=== PATIENT | male | born 1980 | race Caucasian/White ===

== ENCOUNTER 2021-08-25 10:24 | Emergency (ER) | payer OTHER ==
--- NOTE | 2021-08-25 10:50 | EDM.PDOC ---
ED HPI GENERAL MEDICAL PROBLEM - General Stated Complaint: HAND INJURY Time Seen by Provider: 08/25/21 10:30 Source of Information: Reports: Patient History Limitations: Reports: No Limitations - History of Present Illness INITIAL COMMENTS - FREE TEXT/NARRATIVE: c/o injury to fingers of R hand R handed moved to [place] 2m ago, worked at [employer] x 2m handing a tool across a moving belt at work, fingers got caught in bed, he says his "fingers just touched the belt" last Td unknown Right Hand Pain Score (Numeric/FACES): 8 - Related Data Allergies Allergy/AdvReac Type Severity Reaction Status Date / Time No Known Allergies Allergy Verified 08/25/21 11:40 Home Meds: Home Meds Hydrocodone/Acetaminophen [HYDROcodone-Acetaminophen 7.5-325 MG] 1 each PO Q6H PRN #12 tablet 08/25/21 [Rx] Ibuprofen 200 mg PO ASDIRECTED PRN 08/25/21 [History] Multivitamin 1 tab PO DAILY 08/25/21 [History] Review of Systems - Review of Systems Review Of Systems: See Below Constitutional: Reports: No Symptoms Eyes: Reports: No Symptoms Ears: Reports: No Symptoms Nose: Reports: No Symptoms Mouth/Throat: Reports: No Symptoms Respiratory: Reports: No Symptoms Cardiovascular: Reports: No Symptoms GI/Abdominal: Reports: No Symptoms Genitourinary: Reports: No Symptoms Musculoskeletal: Reports: Hand Pain Skin: Reports: No Symptoms Neurological: Reports: No Symptoms Psychiatric: Reports: No Symptoms ED EXAM, GENERAL - Physical Exam Exam: See Below Exam Limited By: No Limitations General Appearance: Alert, WD/WN Extremities: Other (right middle finger with avulsion of distal 1/3rd with 3/4th of nail missing, no lac. Right index finger with avulsion of distal 1/4th with 1/2 of nail missing. Also curvilinear 1.5 cm lac dorsally) Course - Vital Signs Last Recorded V/S: Last Vital Signs Temp 36.3 C 08/25/21 10:24 Pulse 86 08/25/21 13:57 Resp 16 08/25/21 13:57 BP 136/85 08/25/21 13:57 Pulse Ox 96 08/25/21 13:57 - Orders/Labs/Meds Orders: Active Orders 24 hr Category Date Time Status Vaccine to be Administered/Admin Charge [RC] ASDIRECTED Care 08/25/21 10:43 Active Labs: Laboratory Tests 08/25/21 Range/Units 12:15 SARS-CoV-2 RNA (TAJ) Negative (NEGATIVE) Meds: Medications Discontinued Medications Generic Name Dose Route Start Last Admin Trade Name Cece PRN Reason Stop Dose Admin Cefazolin Sodium 1 gm 08/25/21 13:20 08/25/21 13:48 Cefazolin 1 Gm Vial IM 08/25/21 13:21 1 gm ONETIME ONE Administration Diphtheria/Tetanus/Acell Pertussis 0.5 ml 08/25/21 10:43 08/25/21 11:00 Diphtheria,Pertussis(Acell),Tetanus Vaccine 0.5 Ml Syringe IM 08/25/21 10:44 0.5 ml .ONCE ONE Administration Hydromorphone HCl 1 mg 08/25/21 10:42 08/25/21 10:59 Hydromorphone 2 Mg/Ml Sdv IM 08/25/21 10:43 1 mg ONETIME ONE Administration Ketorolac Tromethamine 60 mg 08/25/21 10:42 08/25/21 11:00 Ketorolac 30 Mg/Ml Sdv IM 08/25/21 10:43 60 mg ONETIME ONE Administration - Re-Assessments/Exams Free Text/Narrative Re-Assessment/Exam: 08/25/21 14:25 d/w Dr Davis who said he has not done finger flaps and recommended hand surgery [facility] reached at 11:48aSoni answered phone and reached [facility] hand, d/w Dr Pineda through the [facility] ([place] [facility] did not answer) who requested to see pt tomorrow (Sat) for definitive repair of distal R middle finger where there is no fat covering bone prelim ED read of XRs show no fx, fat layer over R index finger there is a 1 cm defect at distal R index finger and 2 cm defect (at maximum dimension) over R middle finger there is a "three-sided" lac involving the lower 1/3rd of the nail at the index finger that was closed with 3-0 Prolene interrupted x 7, one suture was through the nail altho underlying nail appeared intact Ancef 1 gm IM given as per request of Dr Pineda, who said that he would given additional antbxs digit block of R index finger after betadaine x 6 and alc prep x 3 with #30 needle and 2% lido without epi, cleaned x 10 with gauze and NS wound (over dorsum of index finger) was clean and scrubbed with gauze and NS, no fb's, pedicle of 8 mm on medical aspect appeared adequate to maintain blood supply altho pt cautioned that viability of flap could not be determined definitively today pt's cell phone is [phone] Departure - Departure Time of Disposition: 13:16 Disposition: Home, Self-Care 01 Condition: Good Clinical Impression: Traumatic amputation of fingertip, Laceration of right index finger Fingertip avulsion Qualifiers: Encounter type: initial encounter Qualified Code(s): S61.209A - Unspecified open wound of unspecified finger without damage to nail, initial encounter - Discharge Information *PRESCRIPTION DRUG MONITORING PROGRAM REVIEWED*: Not Applicable *COPY OF PRESCRIPTION DRUG MONITORING REPORT IN PATIENT JOSE: Not Applicable Prescriptions: Hydrocodone/Acetaminophen [HYDROcodone-Acetaminophen 7.5-325 MG] 1 each PO Q6H PRN #12 tablet PRN Reason: Pain Instructions: Traumatic Finger Amputation, Laceration Care, Adult Referrals: PCP,None [Primary Care Provider] - Additional Instructions: Nothing to eat or drink after midnight. Dr Pineda's nurse will call you with the details for tomorrow. He is anticipating having you come at 8:[address] [place] [address] in [facility], although be sure to confirm that with the nurse first. Call back to the ED if you do not have hear from his nurse. For pain, take hydrocodone with acetaminophen 7.5/325 mg 1 tab every 6 hours as needed. No alcohol. For pain, put ice in a plastic bag (to keep dressing dry) and use for 10 minutes every 1-2 hours as needed. Sepsis Event Note (ED) - Focused Exam Vital Signs: Vital Signs Temp Pulse Resp BP Pulse Ox 08/25/21 13:57 86 16 136/85 96 08/25/21 10:24 36.3 C 89 20 150/102 H 99 - My Orders Last 24 Hours: My Active Orders 08/25/21 10:43 Vaccine to be Administered/Admin Charge [RC] ASDIRECTED - Assessment/Plan Last 24 Hours: My Active Orders 08/25/21 10:43 Vaccine to be Administered/Admin Charge [RC] ASDIRECTED
[2021-08-25] MEDS: HYDROmorphone 2 MG/ML SDV IM ONE (10:59)
[2021-08-25] MEDS: Diphtheria,Pertussis(Acell),Tetanus Vaccine 0.5 ML Syringe IM ONE (11:00)
[2021-08-25] MEDS: Ketorolac 30 MG/ML SDV IM ONE (11:00)
--- NOTE | 2021-08-25 12:43 | CR ---
INDICATION: Avulsion second and third digits. RIGHT FINGERS: Three views of the second and third fingers revealed avulsion of the soft tissue at the tips of the fingers without a definite fracture or dislocation, or other acute bone or joint abnormality identified. MTDD
[2021-08-25] MEDS: ceFAZolin 1 GM Vial IM ONE (13:48)
== END 2021-08-25 13:57 | disposition home or self-care (01) ==
LOC: FB.ED 10:24
DX: S68.110A Complete traumatic metacarpophalangeal amputation of right index finger, initial encounter (principal); Z23 Encounter for immunization; Z20.822 Contact with and (suspected) exposure to COVID-19; W23.0XXA Caught, crushed, jammed, or pinched between moving objects, initial encounter; Y92.89 Other specified places as the place of occurrence of the external cause; Y99.0 Civilian activity done for income or pay
CPT/HCPCS: 11760; 73140; 87635; 90471; 90715; 96372; 99283; J0690; J1170; J1885; U0002

== ENCOUNTER 2021-09-29 11:34 | Emergency (ER) | payer SELFPAY ==
[2021-09-29] MEDS ORDERED: Morphine 4 MG/ML VIAL IVPUSH STA (11:56)
[2021-09-29] MEDS ORDERED: Ondansetron 4 MG/2 ML SDV IVPUSH STA (11:56)
[2021-09-29] MEDS ORDERED: Sodium Chloride 0.9% 10 ML Syringe FLUSH PRN (11:56)
[2021-09-29] MEDS ORDERED: Sodium Chloride 0.9% 1,000 ML IV SCH (12:00)
[2021-09-29] MEDS ORDERED: Iopamidol 755 Mg/ML 100 ML Bottle IV ONE (12:07)
[2021-09-29] MEDS ORDERED: Ketorolac 30 MG/ML SDV IVPUSH STA (12:24)
[2021-09-29] MEDS ORDERED: HYDROmorphone 2 MG/ML SDV IVPUSH STA (12:27)
--- NOTE | 2021-09-29 12:49 | EDM.PDOC ---
ED HPI GENERAL MEDICAL PROBLEM - General Stated Complaint: RT SIDE PAIN Time Seen by Provider: 09/29/21 11:40 Source of Information: Reports: Patient History Limitations: Reports: No Limitations - History of Present Illness INITIAL COMMENTS - FREE TEXT/NARRATIVE: Patient presented to the ED because RLQ and RT flank pain which started at about 10 a.m. The pain is stabbing,10/10 with associated nausea and vomiting x1. There is no fever, chills, cough or cold. There is no urinary symptoms or changes in bowel movements. Right Abdomen Pain Score (Numeric/FACES): 10 - Related Data Allergies Allergy/AdvReac Type Severity Reaction Status Date / Time No Known Allergies Allergy Verified 08/25/21 11:40 Home Meds: Home Meds Hydrocodone/Acetaminophen [HYDROcodone-Acetaminophen 7.5-325 MG] 1 each PO Q6H PRN #12 tablet 08/25/21 [Rx] Ibuprofen 200 mg PO ASDIRECTED PRN 08/25/21 [History] Multivitamin 1 tab PO DAILY 08/25/21 [History] Acetaminophen/oxyCODONE [Percocet 325-5 MG] 1 each PO Q4H #20 tab 09/29/21 [Rx] Ondansetron [Zofran ODT] 4 mg PO Q4H PRN #7 tab.dis 09/29/21 [Rx] Tamsulosin HCl [Flomax] 0.4 mg PO DAILY #10 cap.er.24h 09/29/21 [Rx] Social & Family History - Family History Family Medical History: No Pertinent Family History - Caffeine Use Caffeine Use: Reports: Coffee ED ROS GENERAL - Review of Systems Review Of Systems: See Below Constitutional: Reports: No Symptoms HEENT: Reports: No Symptoms Respiratory: Reports: No Symptoms Cardiovascular: Reports: No Symptoms Endocrine: Reports: No Symptoms GI/Abdominal: Reports: Abdominal Pain, Nausea, Vomiting : Reports: No Symptoms Musculoskeletal: Reports: No Symptoms Skin: Reports: No Symptoms ED EXAM, GI/ABD - Physical Exam Exam: See Below Exam Limited By: No Limitations General Appearance: Alert, No Apparent Distress Ears: Normal External Exam, Normal Canal, Hearing Grossly Normal Nose: Normal Inspection, Normal Mucosa, No Blood Throat/Mouth: Normal Inspection, Normal Lips, Normal Teeth Head: Atraumatic, Normocephalic Neck: Normal Inspection, Supple, Non-Tender, Full Range of Motion Respiratory/Chest: No Respiratory Distress, Lungs Clear, Normal Breath Sounds, No Accessory Muscle Use, Chest Non-Tender Cardiovascular: Normal Peripheral Pulses, Regular Rate, Rhythm, No Edema, No Gallop, No JVD, No Murmur GI/Abdominal Exam: Normal Bowel Sounds, Soft, No Organomegaly, No Distention, No Abnormal Bruit, Other (RCVAT) Back Exam: Normal Inspection, Full Range of Motion Extremities: Normal Inspection, Normal Range of Motion, Non-Tender, No Pedal Edema, Normal Capillary Refill Neurological: Alert, Oriented, CN II-XII Intact, Normal Cognition Course - Vital Signs Text/Narrative:: Lab/CT abd-pelvis result was reviewed and discussed with patient NS 1 L bolus Morphine 4 mg IV x1 Dilaudid 1 mg IV x1 Toradol 30 mg IV x1 Zofran 4 mg IV x1 Last Recorded V/S: Last Vital Signs Temp 35.9 C L 09/29/21 11:36 Pulse 77 09/29/21 11:36 Resp 16 09/29/21 11:36 BP 143/108 H 09/29/21 11:36 Pulse Ox 100 09/29/21 11:36 - Orders/Labs/Meds Orders: Active Orders 24 hr Category Date Time Status Saline Lock Insert [OM.PC] Routine Oth 09/29/21 11:56 Ordered Labs: Laboratory Tests 09/29/21 09/29/21 09/29/21 Range/Units 11:52 12:04 12:04 WBC 8.7 (3.2-10.1) x10-3/uL RBC 5.18 (3.90-5.90) x10(6)uL Hgb 14.9 (12.9-17.7) g/dL Hct 43.5 (38.3-50.1) % MCV 84.1 (80.8-98.7) fL MCH 28.8 (27.0-33.3) pg MCHC 34.3 (28.7-35.3) g/dL RDW 14.9 (12.4-15.0) % Plt Count 210 (117-477) x10(3)uL MPV 7.1 (6.7-11.0) fL Neut % (Auto) 67.2 (40.3-71.8) % Lymph % (Auto) 22.9 (15.8-45.3) % Republic % (Auto) 7.2 (5.5-15.2) % Eos % (Auto) 2.2 (0.1-6.8) % Baso % (Auto) 0.5 (0.3-3.8) % Neut # (Auto) 5.8 (1.7-6.9) x10-3/uL Lymph # (Auto) 2.0 (0.5-4.5) x10-3/uL Republic # (Auto) 0.6 (0.0-1.2) x10-3/uL Eos # (Auto) 0.2 (0.0-0.6) x10-3/uL Baso # (Auto) 0.0 (0.0-0.3) x10-3/uL Sodium 137 (135-145) mmol/L Potassium 3.9 (3.5-5.3) mmol/L Chloride 101 (100-110) mmol/L Carbon Dioxide 25 (21-32) mmol/L BUN 13 (7-18) mg/dL Creatinine 1.2 (0.70-1.30) mg/dL Est Cr Clr Drug Dosing TNP Estimated GFR (MDRD) > 60 (>60) BUN/Creatinine Ratio 10.8 (9-20) Glucose 130 H (80-116) mg/dL Calcium 9.0 (8.6-10.2) mg/dL Total Bilirubin 0.8 (0.1-1.3) mg/dL AST 23 (5-25) IU/L ALT 39 H (12-36) U/L Alkaline Phosphatase 127 H (56-112) IU/L Total Protein 7.8 (6.0-8.0) g/dL Albumin 3.9 (3.5-5.2) g/dL Globulin 3.9 g/dL Albumin/Globulin Ratio 1.0 Amylase 53 (25-115) U/L Lipase (73-393) U/L Urine Color Yellow (YELLOW) Urine Appearance Slightly cloudy (CLEAR) Urine pH 5.0 (5.0-6.5) Ur Specific [place] 1.025 (1.010-1.025) Urine Protein Negative (NEGATIVE) mg/dL Urine Glucose (UA) Normal (NORMAL) mg/dL Urine Ketones Negative (NEGATIVE) mg/dL Urine Occult Blood Large H (NEGATIVE) Urine Nitrite Negative (NEGATIVE) Urine Bilirubin Negative (NEGATIVE) Urine Urobilinogen Normal (NEGATIVE) mg/dL Ur Leukocyte Esterase Negative (NEGATIVE) Urine RBC 5-10 H (0-5) Urine WBC 0-5 (0-5) Ur Squamous Epith Cells Occasional (NS,R,O) Urine Bacteria Rare H (NS) 09/29/21 Range/Units 12:04 WBC (3.2-10.1) x10-3/uL RBC (3.90-5.90) x10(6)uL Hgb (12.9-17.7) g/dL Hct (38.3-50.1) % MCV (80.8-98.7) fL MCH (27.0-33.3) pg MCHC (28.7-35.3) g/dL RDW (12.4-15.0) % Plt Count (117-477) x10(3)uL MPV (6.7-11.0) fL Neut % (Auto) (40.3-71.8) % Lymph % (Auto) (15.8-45.3) % Republic % (Auto) (5.5-15.2) % Eos % (Auto) (0.1-6.8) % Baso % (Auto) (0.3-3.8) % Neut # (Auto) (1.7-6.9) x10-3/uL Lymph # (Auto) (0.5-4.5) x10-3/uL Republic # (Auto) (0.0-1.2) x10-3/uL Eos # (Auto) (0.0-0.6) x10-3/uL Baso # (Auto) (0.0-0.3) x10-3/uL Sodium (135-145) mmol/L Potassium (3.5-5.3) mmol/L Chloride (100-110) mmol/L Carbon Dioxide (21-32) mmol/L BUN (7-18) mg/dL Creatinine (0.70-1.30) mg/dL Est Cr Clr Drug Dosing Estimated GFR (MDRD) (>60) BUN/Creatinine Ratio (9-20) Glucose (80-116) mg/dL Calcium (8.6-10.2) mg/dL Total Bilirubin (0.1-1.3) mg/dL AST (5-25) IU/L ALT (12-36) U/L Alkaline Phosphatase (56-112) IU/L Total Protein (6.0-8.0) g/dL Albumin (3.5-5.2) g/dL Globulin g/dL Albumin/Globulin Ratio Amylase (25-115) U/L Lipase 116 (73-393) U/L Urine Color (YELLOW) Urine Appearance (CLEAR) Urine pH (5.0-6.5) Ur Specific [place] (1.010-1.025) Urine Protein (NEGATIVE) mg/dL Urine Glucose (UA) (NORMAL) mg/dL Urine Ketones (NEGATIVE) mg/dL Urine Occult Blood (NEGATIVE) Urine Nitrite (NEGATIVE) Urine Bilirubin (NEGATIVE) Urine Urobilinogen (NEGATIVE) mg/dL Ur Leukocyte Esterase (NEGATIVE) Urine RBC (0-5) Urine WBC (0-5) Ur Squamous Epith Cells (NS,R,O) Urine Bacteria (NS) Meds: Medications Discontinued Medications Generic Name Dose Route Start Last Admin Trade Name Freq PRN Reason Stop Dose Admin Hydromorphone HCl 1 mg 09/29/21 12:27 09/29/21 12:31 Hydromorphone 2 Mg/Ml Sdv IVPUSH 09/29/21 12:28 1 mg NOW STA Administration Sodium Chloride 1,000 mls @ 999 mls/hr 09/29/21 12:00 09/29/21 12:03 Normal Saline IV 999 mls/hr ASDIRECTED ROYCE Administration Iopamidol 100 ml 09/29/21 12:07 09/29/21 12:24 Iopamidol 755 Mg/Ml 100 Ml Bottle IV 09/29/21 12:08 100 ml . DIRECTED ONE Administration Ketorolac Tromethamine 30 mg 09/29/21 12:24 09/29/21 12:28 Ketorolac 30 Mg/Ml Sdv IVPUSH 09/29/21 12:25 30 mg NOW STA Administration Morphine Sulfate 4 mg 09/29/21 11:56 09/29/21 12:03 Morphine 4 Mg/Ml Vial IVPUSH 09/29/21 11:57 4 mg NOW STA Administration Ondansetron HCl 4 mg 09/29/21 11:56 09/29/21 12:03 Ondansetron 4 Mg/2 Ml Sdv IVPUSH 09/29/21 11:57 4 mg NOW STA Administration Sodium Chloride 10 ml 09/29/21 11:56 09/29/21 12:37 Sodium Chloride 0.9% 10 Ml Syringe FLUSH 10 ml ASDIRECTED PRN Administration Keep Vein Open Departure - Departure Time of Disposition: 13:30 Disposition: Home, Self-Care 01 Condition: Good Clinical Impression: Nephrolithiasis - Discharge Information Prescriptions: Tamsulosin HCl [Flomax] 0.4 mg PO DAILY #10 cap.er.24h Acetaminophen/oxyCODONE [Percocet 325-5 MG] 1 each PO Q4H #20 tab Ondansetron [Zofran ODT] 4 mg PO Q4H PRN #7 tab.dis PRN Reason: Nausea Instructions: Kidney Stones, [id number] Referrals: PCP,None [Primary Care Provider] - Forms: ED Return to Work/School Form Additional Instructions: Please read discharge instructions on kidney stones Drink 2 liters of water daily Percocet/oxycodone, take 1-2 tablets every 4-6 hours as needed for pain Zofran/Odansetron ODT 4 mg every 4 hours as needed for nausea Flomax/Tamsulosin 1 tablet daily for 10 days Follow up with your doctor next week if your pain persist Sepsis Event Note (ED) - Focused Exam Vital Signs: Vital Signs Temp Pulse Resp BP Pulse Ox 09/29/21 11:36 35.9 C L 77 16 143/108 H 100 - My Orders Last 24 Hours: My Active Orders 09/29/21 11:56 Saline Lock Insert [OM.PC] Routine - Assessment/Plan Last 24 Hours: My Active Orders 09/29/21 11:56 Saline Lock Insert [OM.PC] Routine
--- NOTE | 2021-09-29 13:02 | CT ---
INDICATION: Right side abdominal pain. CT ABDOMEN AND PELVIS WITH IV CONTRAST: Spiral 3.75 mm axial sections were obtained through the abdomen and pelvis with a 3-minute delay after contrast enhancement utilizing 100 mL Isovue-370 at 2 mL/second due to patient's nausea. Examination was obtained 09/29/21 - no comparisons. TOTAL EXAM DLP: 1606.64 mGy/cm. The lower lung riggs and pleural spaces visualized were unremarkable. The heart did not appear enlarged. No pericardial effusion was seen. There is normal excretion on the left at the left kidney, which appears normal. Pyelocalyceal system and left ureter were unremarkable and noted to be emptying into the urinary bladder, which was unremarkable and almost empty. On the right, however, the kidney showed evidence of delayed excretion with mild dilatation of the pyelocalyceal system and ureter down to the level of a 3.5 mm calculus, perhaps 1 to 2 cm above the ureterovesical junction on the right. The 3.5 mm calculus appears to be producing fairly high-degree of obstruction. The appendix appeared normal, visualized on axial images 55 through 70. No evidence of free air or bowel obstruction was identified. No ventral or inguinal hernia was seen. No additional organomegaly, mass lesions or free fluid collections were identified in the abdomen or pelvis with the gallbladder absent, compatible with cholecystectomy and normal-appearing liver, spleen, pancreas, common bile duct (allowing for postcholecystectomy status), and adrenal glands. No retroperitoneal mass was seen with very minimal retroperitoneal lymphadenopathy, which is nonspecific. Bony structures showed evidence of some degenerative change and disc disease in the lumbar spine. Slight narrowing of the L3-4 disc space is noted. IMPRESSION: 1. Obstructive uropathy, moderately severe, due to a 3.5 mm calculus, approximately 1 cm from the ureterovesical junction on the right. No other definite calculi were seen - no definite nephrocalcinosis identified. However, this was a contrast-enhanced study, which makes it difficult to exclude calculi to some extent. 2. Post cholecystectomy. 3. Mild to moderate hypertrophic degenerative changes with disc disease L3-4. Report was called to Dr. Feliciano at 1230 hours, 09/29/21. [facility]
== END 2021-09-29 13:50 | disposition home or self-care (01) ==
LOC: FB.ED 11:34
DX: N20.0 Calculus of kidney (principal); Z79.899 Other long term (current) drug therapy
CPT/HCPCS: 36415; 74177; 80053; 81001; 82150; 83690; 85025; 96374; 96375; 99284; J1170; J1885; J2270; J2405; J7030; Q9967

== ENCOUNTER 2023-02-26 12:23 | Emergency (ER) | payer SELFPAY ==
[2023-02-26] MEDS ORDERED: Ketorolac 30 MG/ML SDV IM STA ×2 (12:52→12:53)
[2023-02-26] MEDS ORDERED: Enoxaparin 100 MG/1 ML Syringe SUBCUT ONE (15:58)
[2023-02-26] MEDS ORDERED: Enoxaparin 80 MG/0.8 ML Syringe SUBCUT ONE (15:59)
[2023-02-26 16:37] LABS: INR 0.92 (1.00-1.24); PROTHROMBIN TIME 9.5 sec (9.0-11.1); PTT,PARTIAL THROMBOPLSTIN TIME 25.1 SECONDS (24.4-33.2)
== END 2023-02-26 16:45 | disposition home or self-care (01) ==
LOC: FB.ED 12:23
DX: M25.562 Pain in left knee (principal); M10.9 Gout, unspecified; R79.1 Abnormal coagulation profile; Z79.899 Other long term (current) drug therapy; X50.0XXA Overexertion from strenuous movement or load, initial encounter; Y92.59 Other trade areas as the place of occurrence of the external cause
CPT/HCPCS: 36415; 84550; 85049; 85379; 85610; 85730; 96372; 99283; J1650; J1885

== ENCOUNTER 2024-04-15 07:25 | Emergency (ER) | payer SELFPAY ==
[2024-04-15] MEDS: Aspirin 81 MG Tab.Chew PO ONE (07:30)
[2024-04-15] MEDS ORDERED: Sodium Chloride 0.9% 10 ML Syringe FLUSH PRN (07:48)
[2024-04-15 07:57] LABS: BASOPHILS ABSOLUTE AUTO 0.1 x10-3/uL (0.0-0.3); BASOPHILS PERCENT AUTO 0.6 % (0.3-3.8); EOSINOPHILS PERCENT AUTO 0.3 % (0.1-6.8); HEMATOCRIT 48.6 % (38.3-50.1); HEMOGLOBIN 16.8 g/dL (12.9-17.7); LYMPHOCYTES ABSOLUTE AUTO 3.1 x10-3/uL (0.5-4.5); LYMPHOCYTES PERCENT AUTO 28.3 % (15.8-45.3); MEAN CORPUSCULAR HEMOGLOBIN 29.7 pg (27.0-33.3); MEAN CORPUSCULAR HGB CONC 34.5 g/dL (28.7-35.3); MEAN CORPUSCULAR VOLUME 86.3 fL (80.8-98.7); MEAN PLATELET VOLUME 7.8 fL (6.7-11.0); MONOCYTES PERCENT AUTO 9.1 % (5.5-15.2); NEUTROPHILS ABSOLUTE AUTO 6.7 x10-3/uL (1.7-6.9); NEUTROPHILS PERCENT AUTO 61.7 % (40.3-71.8); PLATELET COUNT,PLT 234 x10(3)uL (117-477); RED BLOOD CELL COUNT 5.64 x10(6)uL (3.90-5.90); RED CELL DISTRIBUTION WIDTH 13.5 % (12.4-15.0); WHITE BLOOD CELL COUNT,WBC 10.8 x10-3/uL (3.2-10.1)
[2024-04-15] MEDS: LORazepam 2 MG/ML SDV IVPUSH ONE (07:59)
[2024-04-15] MEDS: Nitroglycerin 0.4 MG Tab.SL SL PRN (08:01)
[2024-04-15 08:02] LABS: BLOOD UREA NITROGEN,BUN 21 mg/dL (7-18); BUN/CREATININE RATIO 17.5 (9-20); CALCIUM 9.6 mg/dL (8.6-10.2); CARBON DIOXIDE,CO2 24 mmol/L (21-32); CHLORIDE,CL 94 mmol/L (100-110); CREATININE 1.2 mg/dL (0.70-1.30); EST CRCL DRUG DOSING (CG) 67.62 mL/min; ESTIMATED GFR 76 mL/min (>60); GLUCOSE RANDOM 396 mg/dL (80-116); POTASSIUM,K 4.3 mmol/L (3.5-5.3); SODIUM,NA 131 mmol/L (135-145)
[2024-04-15] MEDS: Pantoprazole 40 MG Vial IVPUSH ONE (08:02)
[2024-04-15 08:03] LABS: C-REACTIVE PROTEIN <0.50 mg/dL (<0.50); LIPASE 45 U/L (16-77)
[2024-04-15 08:08] LABS: A/G RATIO 0.9; ALANINE AMINOTRANSFERASE,ALT 108 U/L (12-36); ALBUMIN 3.5 g/dL (3.5-5.2); ALKALINE PHOSPHATASE 146 IU/L (56-112); ASPARTATE AMNIOTRANSFERASE,AST 49 IU/L (5-25); BILIRUBIN TOTAL 0.6 mg/dL (0.1-1.3); PROTEIN TOTAL,TP 7.6 g/dL (6.0-8.0)
[2024-04-15 09:22] LABS: HEMOGLOBIN A1C 7.1 % (<5.7)
[2024-04-15] MEDS: Sodium Chloride 0.9% 1,000 ML IV ONE (09:26)
[2024-04-15] MEDS: Insulin Regular, Human 100 Units/ML 3 ML Vial IV ONE ×2 (09:28→11:49)
[2024-04-15] MEDS: Nicotine Polacrilex 2 MG Gum CHEW PRN (10:39)
[2024-04-15] MEDS ORDERED: Glucagon,Human Recombinant 1 MG Vial IM PRN (11:44)
[2024-04-15] MEDS ORDERED: 50% Dextrose in Water 50 ML Syringe IVPUSH PRN (11:44)
== END 2024-04-15 12:08 | disposition home or self-care (01) ==
LOC: FB.ED 07:25
DX: R07.89 Other chest pain (principal); E11.65 Type 2 diabetes mellitus with hyperglycemia; E87.21 Acute metabolic acidosis; E87.1 Hypo-osmolality and hyponatremia; R74.01 Elevation of levels of liver transaminase levels; F17.210 Nicotine dependence, cigarettes, uncomplicated; Z95.5 Presence of coronary angioplasty implant and graft
CPT/HCPCS: 36415; 80053; 82947; 83036; 83605; 83690; 84484; 85025; 85379; 86140; 93005; 96361; 96374; 96375; 99285; A9270; C9113; J1815; J2060; J7030

== ENCOUNTER 2024-07-15 08:31 | Emergency (ER) | payer SELFPAY ==
[2024-07-15 09:12] LABS: BASOPHILS ABSOLUTE AUTO 0.1 x10-3/uL (0.0-0.3); EOSINOPHILS PERCENT AUTO 0.6 % (0.1-6.8); HEMATOCRIT 52.4 % (38.3-50.1); HEMOGLOBIN 18.4 g/dL (12.9-17.7); LYMPHOCYTES PERCENT AUTO 36.1 % (15.8-45.3); MEAN CORPUSCULAR HEMOGLOBIN 29.4 pg (27.0-33.3); MEAN CORPUSCULAR HGB CONC 35.1 g/dL (28.7-35.3); MEAN CORPUSCULAR VOLUME 83.9 fL (80.8-98.7); MEAN PLATELET VOLUME 7.3 fL (6.7-11.0); MONOCYTES ABSOLUTE AUTO 0.4 x10-3/uL (0.0-1.2); MONOCYTES PERCENT AUTO 6.6 % (5.5-15.2); NEUTROPHILS ABSOLUTE AUTO 3.1 x10-3/uL (1.7-6.9); NEUTROPHILS PERCENT AUTO 55.7 % (40.3-71.8); PLATELET COUNT,PLT 259 x10(3)uL (117-477); RED BLOOD CELL COUNT 6.24 x10(6)uL (3.90-5.90); RED CELL DISTRIBUTION WIDTH 13.8 % (12.4-15.0); WHITE BLOOD CELL COUNT,WBC 5.7 x10-3/uL (3.2-10.1)
[2024-07-15 09:17] LABS: BLOOD UREA NITROGEN,BUN 9 mg/dL (7-18); CALCIUM 8.7 mg/dL (8.6-10.2); CARBON DIOXIDE,CO2 22 mmol/L (21-32); CHLORIDE,CL 91 mmol/L (100-110); CREATININE 0.9 mg/dL (0.70-1.30); EST CRCL DRUG DOSING (CG) 90.16 mL/min; ESTIMATED GFR 107 mL/min (>60); GLUCOSE RANDOM 150 mg/dL (80-116); SODIUM,NA 132 mmol/L (135-145)
[2024-07-15] MEDS ORDERED: Sodium Chloride 0.9% 10 ML Syringe FLUSH PRN (09:23)
[2024-07-15] MEDS: Pantoprazole 40 MG Tab.CR ONE (09:29)
[2024-07-15] MEDS: Ondansetron 8 MG Tab.DIS PO ONE (09:30)
[2024-07-15] MEDS: Pantoprazole 40 MG Tab.CR PO SCH (09:30)
[2024-07-15] MEDS: Sodium Chloride 0.9% 1,000 ML IV SCH (09:31)
[2024-07-15 09:35] LABS: ALBUMIN 3.9 g/dL (3.5-5.2); ALKALINE PHOSPHATASE 212 IU/L (56-112); BILIRUBIN TOTAL 1.2 mg/dL (0.1-1.3); PROTEIN TOTAL,TP 7.9 g/dL (6.0-8.0)
[2024-07-15 09:41] LABS: ALANINE AMINOTRANSFERASE,ALT 185 U/L (12-36); ASPARTATE AMNIOTRANSFERASE,AST 151 IU/L (5-25)
[2024-07-15 10:08] LABS: BILIRUBIN,URINE NEGATIVE (NEGATIVE); GLUCOSE,URINE NORMAL (NORMAL); KETONES,URINE 15 mg/dL (NEGATIVE); LEUKOCYTE ESTERASE,URINE NEGATIVE (NEGATIVE); NITRITE,URINE NEGATIVE (NEGATIVE); OCCULT BLOOD,URINE MODERATE (NEGATIVE); PROTEIN,URINE 500 mg/dL (NEGATIVE); UROBILINOGEN,URINE NORMAL (NEGATIVE)
[2024-07-15] MEDS: Nicotine 14 MG/24 Hr Patch TRDERM ONE (10:08)
[2024-07-15 10:09] LABS: AMPHETAMINES SCREEN, URINE NEGATIVE (NEGATIVE); BARBITURATE SCREEN,URINE NEGATIVE (NEGATIVE); BENZODIAZEPINES SCREEN,URINE NEGATIVE (NEGATIVE); BUPRENORPHINE SCREEN,URINE NEGATIVE (NEGATIVE); METHADONE SCREEN, URINE NEGATIVE (NEGATIVE); METHAMPHETAMINE SCREEN, URINE NEGATIVE (NEGATIVE); OXYCODONE SCREEN,URINE NEGATIVE (NEGATIVE); THC SCREEN,URINE NEGATIVE (NEGATIVE)
[2024-07-15 10:14] LABS: APPEARANCE,URINE CLEAR (CLEAR); BACTERIA,URINE FEW (NS); COLOR,URINE YELLOW (YELLOW); SQUAMOUS EPITHELIAL CELLS,UR OCCASIONAL (NS,R,O); WBC,URINE 0-5 (0-5)
== END 2024-07-15 11:20 | disposition home or self-care (01) ==
LOC: FB.ED 08:31
DX: F10.120 Alcohol abuse with intoxication, uncomplicated (principal); F32.A Depression, unspecified; F17.210 Nicotine dependence, cigarettes, uncomplicated; Z79.899 Other long term (current) drug therapy; Z91.013 Allergy to seafood
CPT/HCPCS: 36415; 80053; 80307; 81001; 83690; 84443; 84550; 85025; 96360; 99284; A9270; J7030

== ENCOUNTER 2024-07-17 11:58 | Emergency (ER) | payer SELFPAY ==
[2024-07-17] MEDS ORDERED: Sodium Chloride 0.9% 1,000 ML IV SCH (12:15)
[2024-07-17] MEDS ORDERED: Multivitamin Tab PO SCH (12:15)
[2024-07-17] MEDS ORDERED: Multivitamin, Childrens Tab.Chew PO SCH (12:15)
[2024-07-17 12:26] LABS: BASOPHILS PERCENT AUTO 0.5 % (0.3-3.8); EOSINOPHILS PERCENT AUTO 0.2 % (0.1-6.8); HEMATOCRIT 51.1 % (38.3-50.1); HEMOGLOBIN 17.7 g/dL (12.9-17.7); LYMPHOCYTES ABSOLUTE AUTO 1.3 x10-3/uL (0.5-4.5); LYMPHOCYTES PERCENT AUTO 15.4 % (15.8-45.3); MEAN CORPUSCULAR HEMOGLOBIN 29.1 pg (27.0-33.3); MEAN CORPUSCULAR HGB CONC 34.6 g/dL (28.7-35.3); MEAN PLATELET VOLUME 7.1 fL (6.7-11.0); MONOCYTES ABSOLUTE AUTO 0.3 x10-3/uL (0.0-1.2); MONOCYTES PERCENT AUTO 3.6 % (5.5-15.2); NEUTROPHILS ABSOLUTE AUTO 6.6 x10-3/uL (1.7-6.9); NEUTROPHILS PERCENT AUTO 80.3 % (40.3-71.8); PLATELET COUNT,PLT 230 x10(3)uL (117-477); RED BLOOD CELL COUNT 6.08 x10(6)uL (3.90-5.90); RED CELL DISTRIBUTION WIDTH 13.6 % (12.4-15.0); WHITE BLOOD CELL COUNT,WBC 8.2 x10-3/uL (3.2-10.1)
[2024-07-17 12:28] LABS: BLOOD UREA NITROGEN,BUN 11 mg/dL (7-18); BUN/CREATININE RATIO 13.8 (9-20); CALCIUM 8.5 mg/dL (8.6-10.2); CARBON DIOXIDE,CO2 16 mmol/L (21-32); CHLORIDE,CL 91 mmol/L (100-110); CREATININE 0.8 mg/dL (0.70-1.30); ESTIMATED GFR 111 mL/min (>60); GLUCOSE RANDOM 130 mg/dL (80-116); POTASSIUM,K 4.3 mmol/L (3.5-5.3); SODIUM,NA 130 mmol/L (135-145)
[2024-07-17 12:29] LABS: ETHANOL BLOOD MEDICAL 0.07 % (<0.03)
[2024-07-17] MEDS: Sodium Chloride 0.9% 1,000 ML IV ONE (12:29)
[2024-07-17] MEDS: LORazepam 2 MG/ML SDV IVPUSH ONE (12:29)
[2024-07-17] MEDS: Thiamine 200 MG/2 ML MDV IVPUSH ONE (12:30)
[2024-07-17] MEDS: Prochlorperazine 10 MG/2 ML SDV IVPUSH ONE (12:31)
[2024-07-17] MEDS: Nicotine 21 MG/24 Hr Patch TRDERM ONE (12:50)
[2024-07-17 13:10] LABS: PROTEIN TOTAL,TP 7.7 g/dL (6.0-8.0)
[2024-07-17 13:11] LABS: A/G RATIO 0.9; ALBUMIN 3.7 g/dL (3.5-5.2); ALKALINE PHOSPHATASE 238 IU/L (56-112); ASPARTATE AMNIOTRANSFERASE,AST 122 IU/L (5-25); BILIRUBIN TOTAL 1.8 mg/dL (0.1-1.3); MAGNESIUM 1.8 mg/dL (1.8-2.5); PHOSPHORUS 3.1 mg/dL (2.6-4.6)
[2024-07-17 13:13] LABS: ALANINE AMINOTRANSFERASE,ALT 208 U/L (12-36); CREATINE KINASE,CK 369 IU/L (60-160)
[2024-07-17] MEDS: Pantoprazole 40 MG Vial IVPUSH ONE (14:26)
[2024-07-17] MEDS: Iopamidol 755 Mg/ML 100 ML Bottle IV SCH (14:33)
[2024-07-17 15:12] LABS: AMPHETAMINES SCREEN, URINE NEGATIVE (NEGATIVE); BARBITURATE SCREEN,URINE NEGATIVE (NEGATIVE); BENZODIAZEPINES SCREEN,URINE NEGATIVE (NEGATIVE); METHADONE SCREEN, URINE NEGATIVE (NEGATIVE); METHAMPHETAMINE SCREEN, URINE NEGATIVE (NEGATIVE); OXYCODONE SCREEN,URINE NEGATIVE (NEGATIVE); THC SCREEN,URINE NEGATIVE (NEGATIVE)
[2024-07-17 15:13] LABS: BUPRENORPHINE SCREEN,URINE NEGATIVE (NEGATIVE)
== END 2024-07-17 15:20 | disposition home or self-care (01) ==
LOC: FB.ED 11:58
DX: K70.9 Alcoholic liver disease, unspecified (principal); K29.20 Alcoholic gastritis without bleeding; K21.9 Gastro-esophageal reflux disease without esophagitis; F10.139 Alcohol abuse with withdrawal, unspecified; Z91.013 Allergy to seafood; Z79.899 Other long term (current) drug therapy
CPT/HCPCS: 36415; 74177; 80053; 80307; 82550; 83690; 83735; 84100; 85025; 96361; 96374; 96375; 99284; A9270; J0780; J2060; J2470; J3411; J7030; Q9967

== ENCOUNTER 2024-09-09 18:07 | Emergency (ER) | payer SELFPAY ==
[2024-09-09] MEDS: OLANZapine 10 MG Vial IM ONE (18:08)
[2024-09-09 18:49] LABS: BASOPHILS PERCENT AUTO 0.4 % (0.3-3.8); EOSINOPHILS PERCENT AUTO 0.1 % (0.1-6.8); HEMATOCRIT 56.7 % (38.3-50.1); HEMOGLOBIN 19.7 g/dL (12.9-17.7); LYMPHOCYTES ABSOLUTE AUTO 2.2 x10-3/uL (0.5-4.5); LYMPHOCYTES PERCENT AUTO 24.2 % (15.8-45.3); MEAN CORPUSCULAR HEMOGLOBIN 29.2 pg (27.0-33.3); MEAN CORPUSCULAR HGB CONC 34.7 g/dL (28.7-35.3); MEAN CORPUSCULAR VOLUME 84.2 fL (80.8-98.7); MEAN PLATELET VOLUME 7.3 fL (6.7-11.0); MONOCYTES ABSOLUTE AUTO 0.3 x10-3/uL (0.0-1.2); MONOCYTES PERCENT AUTO 3.2 % (5.5-15.2); NEUTROPHILS ABSOLUTE AUTO 6.4 x10-3/uL (1.7-6.9); NEUTROPHILS PERCENT AUTO 72.1 % (40.3-71.8); PLATELET COUNT,PLT 273 x10(3)uL (117-477); RED BLOOD CELL COUNT 6.74 x10(6)uL (3.90-5.90); RED CELL DISTRIBUTION WIDTH 14.3 % (12.4-15.0); WHITE BLOOD CELL COUNT,WBC 8.9 x10-3/uL (3.2-10.1)
[2024-09-09 19:08] LABS: A/G RATIO 1.1; ALKALINE PHOSPHATASE 214 IU/L (56-112); BILIRUBIN TOTAL 1.6 mg/dL (0.1-1.3); BLOOD UREA NITROGEN,BUN 17 mg/dL (7-18); BUN/CREATININE RATIO 18.9 (9-20); CALCIUM 8.8 mg/dL (8.6-10.2); CARBON DIOXIDE,CO2 19 mmol/L (21-32); CHLORIDE,CL 97 mmol/L (100-110); CREATININE 0.9 mg/dL (0.70-1.30); ESTIMATED GFR 107 mL/min (>60); GLUCOSE RANDOM 104 mg/dL (80-116); MAGNESIUM 1.9 mg/dL (1.8-2.5); PROTEIN TOTAL,TP 7.8 g/dL (6.0-8.0); SODIUM,NA 137 mmol/L (135-145)
[2024-09-09 19:12] LABS: ALANINE AMINOTRANSFERASE,ALT 186 U/L (12-36); ASPARTATE AMNIOTRANSFERASE,AST 151 IU/L (5-25)
== END 2024-09-09 23:05 | disposition home or self-care (01) ==
LOC: FB.ED 18:07
DX: F10.120 Alcohol abuse with intoxication, uncomplicated (principal); F17.210 Nicotine dependence, cigarettes, uncomplicated; Z91.013 Allergy to seafood; Z79.899 Other long term (current) drug therapy
CPT/HCPCS: 36415; 80053; 80307; 83735; 84100; 85025; 96372; 99284; J2359

== ENCOUNTER 2024-10-07 04:23 | Emergency (ER) | payer SELFPAY ==
[2024-10-07 04:58] LABS: BASOPHILS PERCENT AUTO 0.3 % (0.3-3.8); BLOOD UREA NITROGEN,BUN 13 mg/dL (7-18); BUN/CREATININE RATIO 16.3 (9-20); CALCIUM 9.7 mg/dL (8.6-10.2); CARBON DIOXIDE,CO2 23 mmol/L (21-32); CHLORIDE,CL 102 mmol/L (100-110); CREATININE 0.8 mg/dL (0.70-1.30); EOSINOPHILS ABSOLUTE AUTO 0.1 x10-3/uL (0.0-0.6); EOSINOPHILS PERCENT AUTO 0.6 % (0.1-6.8); EST CRCL DRUG DOSING (CG) 96.61 mL/min; ESTIMATED GFR 111 mL/min (>60); GLUCOSE RANDOM 104 mg/dL (80-116); HEMATOCRIT 47.2 % (38.3-50.1); HEMOGLOBIN 16.4 g/dL (12.9-17.7); LYMPHOCYTES ABSOLUTE AUTO 1.7 x10-3/uL (0.5-4.5); LYMPHOCYTES PERCENT AUTO 19.7 % (15.8-45.3); MEAN CORPUSCULAR HEMOGLOBIN 29.4 pg (27.0-33.3); MEAN CORPUSCULAR HGB CONC 34.7 g/dL (28.7-35.3); MEAN CORPUSCULAR VOLUME 84.7 fL (80.8-98.7); MEAN PLATELET VOLUME 7.9 fL (6.7-11.0); MONOCYTES ABSOLUTE AUTO 0.4 x10-3/uL (0.0-1.2); MONOCYTES PERCENT AUTO 5.4 % (5.5-15.2); NEUTROPHILS ABSOLUTE AUTO 6.2 x10-3/uL (1.7-6.9); PLATELET COUNT,PLT 225 x10(3)uL (117-477); POTASSIUM,K 3.9 mmol/L (3.5-5.3); RED BLOOD CELL COUNT 5.57 x10(6)uL (3.90-5.90); RED CELL DISTRIBUTION WIDTH 14.2 % (12.4-15.0); SODIUM,NA 141 mmol/L (135-145); WHITE BLOOD CELL COUNT,WBC 8.4 x10-3/uL (3.2-10.1)
[2024-10-07 05:05] LABS: ACETAMINOPHEN < 2 ug/mL (<2); SALICYLATE < 2.8 mg/dL (<2.8)
[2024-10-07] MEDS: Ondansetron 4 MG Tab.DIS PO ONE (05:05)
== END 2024-10-07 06:30 | disposition home or self-care (01) ==
LOC: FB.ED 04:23
DX: F32.A Depression, unspecified (principal); F10.129 Alcohol abuse with intoxication, unspecified; Z79.899 Other long term (current) drug therapy; Z91.013 Allergy to seafood; Y90.7 Blood alcohol level of 200-239 mg/100 ml
CPT/HCPCS: 36415; 80048; 80143; 80179; 80307; 85025; 99284; Q0162

== ENCOUNTER 2024-10-18 09:00 | Emergency (ER) | payer SELFPAY ==
[2024-10-18] MEDS: Ondansetron 4 MG Tab.DIS PO ONE (09:25)
[2024-10-18] MEDS: LORazepam 2 MG/ML SDV IM ONE (09:27)
== END 2024-10-18 10:44 | disposition home or self-care (01) ==
LOC: FB.ED 09:00
DX: F10.10 Alcohol abuse, uncomplicated (principal); F17.210 Nicotine dependence, cigarettes, uncomplicated; Z91.013 Allergy to seafood; Z79.899 Other long term (current) drug therapy; Y90.9 Presence of alcohol in blood, level not specified
CPT/HCPCS: 96372; 99284; J2060; Q0162

== ENCOUNTER 2025-05-03 07:32 | Emergency (ER) | payer SELFPAY ==
[2025-05-03 07:57] LABS: BASOPHILS PERCENT AUTO 0.7 % (0.3-3.8); EOSINOPHILS ABSOLUTE AUTO 0.2 x10-3/uL (0.0-0.6); LYMPHOCYTES ABSOLUTE AUTO 3.1 x10-3/uL (0.5-4.5); MONOCYTES ABSOLUTE AUTO 0.4 x10-3/uL (0.0-1.2); WHITE BLOOD CELL COUNT,WBC 6.9 x10-3/uL (3.2-10.1)
[2025-05-03 07:59] LABS: BASOPHILS ABSOLUTE AUTO 0.1 x10-3/uL (0.0-0.3); EOSINOPHILS PERCENT AUTO 2.6 % (0.1-6.8); LYMPHOCYTES PERCENT AUTO 45.4 % (15.8-45.3); MEAN PLATELET VOLUME 6.7 fL (6.7-11.0); MONOCYTES PERCENT AUTO 6.0 % (5.5-15.2); NEUTROPHILS ABSOLUTE AUTO 3.1 x10-3/uL (1.7-6.9); NEUTROPHILS PERCENT AUTO 45.3 % (40.3-71.8); PLATELET COUNT,PLT 179 x10(3)uL (117-477); RED BLOOD CELL COUNT 6.40 x10(6)uL (3.90-5.90); RED CELL DISTRIBUTION WIDTH 13.5 % (12.4-15.0)
[2025-05-03 08:02] LABS: BLOOD UREA NITROGEN,BUN 12 mg/dL (7-18); CARBON DIOXIDE,CO2 27 mmol/L (21-32); CHLORIDE,CL 99 mmol/L (100-110); CREATININE 0.8 mg/dL (0.70-1.30); EST CRCL DRUG DOSING (CG) 96.61 mL/min; ESTIMATED GFR 111 mL/min (>60); GLUCOSE RANDOM 119 mg/dL (80-116); POTASSIUM,K 3.8 mmol/L (3.5-5.3); SODIUM,NA 138 mmol/L (135-145)
[2025-05-03 08:08] LABS: A/G RATIO 1.0; ALANINE AMINOTRANSFERASE,ALT 81 U/L (12-36); ASPARTATE AMNIOTRANSFERASE,AST 54 IU/L (5-25); BILIRUBIN TOTAL 0.8 mg/dL (0.1-1.3); PROTEIN TOTAL,TP 7.7 g/dL (6.0-8.0)
[2025-05-03] MEDS: Sodium Chloride 0.9% 10 ML Syringe FLUSH PRN (08:13)
[2025-05-03 08:48] LABS: GLUCOSE,URINE NORMAL (NORMAL); OCCULT BLOOD,URINE NEGATIVE (NEGATIVE)
[2025-05-03 08:53] LABS: APPEARANCE,URINE CLEAR (CLEAR); SQUAMOUS EPITHELIAL CELLS,UR RARE (NS,R,O)
[2025-05-03 08:54] LABS: AMPHETAMINES SCREEN, URINE NEGATIVE (NEGATIVE); BUPRENORPHINE SCREEN,URINE NEGATIVE (NEGATIVE); METHADONE SCREEN, URINE NEGATIVE (NEGATIVE); METHAMPHETAMINE SCREEN, URINE NEGATIVE (NEGATIVE); OXYCODONE SCREEN,URINE NEGATIVE (NEGATIVE)
[2025-05-03] MEDS: LORazepam 2 MG/ML SDV IVPUSH ONE (09:27)
[2025-05-03] MEDS: MVI, Adult with Vitamin K 10 ML in Sodium Chloride 0.9% 1,000 ML IV ONE (09:31)
[2025-05-03] MEDS: Thiamine 200 MG/2 ML MDV IVPUSH ONE (09:32)
== END 2025-05-03 13:10 | disposition left against medical advice (07) ==
LOC: FB.ED 07:32
DX: F10.129 Alcohol abuse with intoxication, unspecified (principal); Z91.013 Allergy to seafood; Z79.899 Other long term (current) drug therapy; Y90.9 Presence of alcohol in blood, level not specified
CPT/HCPCS: 36415; 80053; 80143; 80179; 80307; 81001; 83036; 85025; 93005; 96365; 96366; 96375; 99285; A9270; J2060; J3411; J7030

== ENCOUNTER 2025-05-03 20:54 | Emergency (ER) | payer SELFPAY ==
[2025-05-03] MEDS ORDERED: Sodium Chloride 0.9% 10 ML Syringe FLUSH PRN (21:01)
[2025-05-03] MEDS: Ondansetron 4 MG/2 ML SDV IVPUSH ONE (21:37)
[2025-05-03 21:38] LABS: BASOPHILS ABSOLUTE AUTO 0.0 x10-3/uL (0.0-0.3); BASOPHILS PERCENT AUTO 0.8 % (0.3-3.8); EOSINOPHILS ABSOLUTE AUTO 0.0 x10-3/uL (0.0-0.6); EOSINOPHILS PERCENT AUTO 0.8 % (0.1-6.8); LYMPHOCYTES ABSOLUTE AUTO 1.9 x10-3/uL (0.5-4.5); LYMPHOCYTES PERCENT AUTO 32.0 % (15.8-45.3); MEAN PLATELET VOLUME 6.5 fL (6.7-11.0); MONOCYTES ABSOLUTE AUTO 0.3 x10-3/uL (0.0-1.2); MONOCYTES PERCENT AUTO 5.6 % (5.5-15.2); NEUTROPHILS ABSOLUTE AUTO 3.7 x10-3/uL (1.7-6.9); NEUTROPHILS PERCENT AUTO 60.8 % (40.3-71.8); PLATELET COUNT,PLT 170 x10(3)uL (117-477); RED BLOOD CELL COUNT 6.19 x10(6)uL (3.90-5.90); RED CELL DISTRIBUTION WIDTH 13.5 % (12.4-15.0); WHITE BLOOD CELL COUNT,WBC 6.0 x10-3/uL (3.2-10.1)
[2025-05-03 21:44] LABS: BLOOD UREA NITROGEN,BUN 11 mg/dL (7-18); CARBON DIOXIDE,CO2 27 mmol/L (21-32); CHLORIDE,CL 100 mmol/L (100-110); CREATININE 0.8 mg/dL (0.70-1.30); ESTIMATED GFR 111 mL/min (>60); GLUCOSE RANDOM 103 mg/dL (80-116); POTASSIUM,K 3.7 mmol/L (3.5-5.3); SODIUM,NA 139 mmol/L (135-145)
[2025-05-03 22:11] LABS: GLUCOSE,URINE NORMAL (NORMAL); OCCULT BLOOD,URINE NEGATIVE (NEGATIVE)
[2025-05-03 22:12] LABS: APPEARANCE,URINE CLEAR (CLEAR)
[2025-05-03 22:16] LABS: AMPHETAMINES SCREEN, URINE NEGATIVE (NEGATIVE); METHADONE SCREEN, URINE NEGATIVE (NEGATIVE); METHAMPHETAMINE SCREEN, URINE NEGATIVE (NEGATIVE); OXYCODONE SCREEN,URINE NEGATIVE (NEGATIVE)
[2025-05-03 22:17] LABS: BUPRENORPHINE SCREEN,URINE NEGATIVE (NEGATIVE)
[2025-05-03 22:29] LABS: SQUAMOUS EPITHELIAL CELLS,UR NOT SEEN (NS,R,O)
== END 2025-05-04 01:50 | disposition home or self-care (01) ==
LOC: FB.ED 20:54
DX: F10.120 Alcohol abuse with intoxication, uncomplicated (principal); E86.0 Dehydration; E87.20 Acidosis, unspecified; F17.200 Nicotine dependence, unspecified, uncomplicated; I10 Essential (primary) hypertension; Z91.013 Allergy to seafood; Z79.899 Other long term (current) drug therapy; Z90.49 Acquired absence of other specified parts of digestive tract; Y90.9 Presence of alcohol in blood, level not specified
CPT/HCPCS: 36415; 80048; 80307; 81001; 83605; 83735; 85025; 87086; 96361; 96374; 99284; A9270; J2405; J7030

== ENCOUNTER 2025-05-20 22:05 | Emergency (ER) | payer BC ==
[2025-05-20 22:42] LABS: BASOPHILS ABSOLUTE AUTO 0.1 x10-3/uL (0.0-0.3); BASOPHILS PERCENT AUTO 1.1 % (0.3-3.8); EOSINOPHILS ABSOLUTE AUTO 0.1 x10-3/uL (0.0-0.6); EOSINOPHILS PERCENT AUTO 0.7 % (0.1-6.8); LYMPHOCYTES ABSOLUTE AUTO 3.2 x10-3/uL (0.5-4.5); LYMPHOCYTES PERCENT AUTO 34.8 % (15.8-45.3); MEAN PLATELET VOLUME 6.7 fL (6.7-11.0); MONOCYTES ABSOLUTE AUTO 0.4 x10-3/uL (0.0-1.2); MONOCYTES PERCENT AUTO 4.1 % (5.5-15.2); NEUTROPHILS ABSOLUTE AUTO 5.5 x10-3/uL (1.7-6.9); NEUTROPHILS PERCENT AUTO 59.3 % (40.3-71.8); PLATELET COUNT,PLT 278 x10(3)uL (117-477); RED BLOOD CELL COUNT 6.23 x10(6)uL (3.90-5.90); RED CELL DISTRIBUTION WIDTH 14.7 % (12.4-15.0); WHITE BLOOD CELL COUNT,WBC 9.3 x10-3/uL (3.2-10.1)
[2025-05-20 22:45] LABS: BLOOD UREA NITROGEN,BUN 11 mg/dL (7-18); CARBON DIOXIDE,CO2 21 mmol/L (21-32); CHLORIDE,CL 103 mmol/L (100-110); CREATININE 0.8 mg/dL (0.70-1.30); EST CRCL DRUG DOSING (CG) 100.36 mL/min; ESTIMATED GFR 111 mL/min (>60); GLUCOSE RANDOM 100 mg/dL (80-116); POTASSIUM,K 3.6 mmol/L (3.5-5.3); SODIUM,NA 142 mmol/L (135-145)
[2025-05-20 22:56] LABS: A/G RATIO 1.1; ASPARTATE AMNIOTRANSFERASE,AST 123 IU/L (5-25); BILIRUBIN TOTAL 0.9 mg/dL (0.1-1.3); PROTEIN TOTAL,TP 7.8 g/dL (6.0-8.0)
[2025-05-20 23:05] LABS: ALANINE AMINOTRANSFERASE,ALT 202 U/L (12-36)
== END 2025-05-20 23:39 | disposition left against medical advice (07) ==
LOC: FB.ED 22:05
DX: F10.129 Alcohol abuse with intoxication, unspecified (principal); E87.20 Acidosis, unspecified; I10 Essential (primary) hypertension; F17.200 Nicotine dependence, unspecified, uncomplicated; Z91.013 Allergy to seafood; Z79.899 Other long term (current) drug therapy; Z90.49 Acquired absence of other specified parts of digestive tract
CPT/HCPCS: 36415; 80053; 80307; 83605; 83735; 85025; 99284

== ENCOUNTER 2025-05-31 16:31 | Emergency (ER) | payer BC ==
[2025-05-31] MEDS ORDERED: Sodium Chloride 0.9% 10 ML Syringe FLUSH PRN (16:56)
[2025-05-31 17:09] LABS: BASOPHILS ABSOLUTE AUTO 0.0 x10-3/uL (0.0-0.3); BASOPHILS PERCENT AUTO 0.4 % (0.3-3.8); EOSINOPHILS ABSOLUTE AUTO 0.0 x10-3/uL (0.0-0.6); EOSINOPHILS PERCENT AUTO 0.3 % (0.1-6.8); LYMPHOCYTES ABSOLUTE AUTO 0.7 x10-3/uL (0.5-4.5); LYMPHOCYTES PERCENT AUTO 16.2 % (15.8-45.3); MEAN PLATELET VOLUME 6.6 fL (6.7-11.0); MONOCYTES ABSOLUTE AUTO 0.6 x10-3/uL (0.0-1.2); MONOCYTES PERCENT AUTO 13.7 % (5.5-15.2); NEUTROPHILS ABSOLUTE AUTO 3.1 x10-3/uL (1.7-6.9); NEUTROPHILS PERCENT AUTO 69.4 % (40.3-71.8); PLATELET COUNT,PLT 99 x10(3)uL (117-477); RED BLOOD CELL COUNT 5.77 x10(6)uL (3.90-5.90); RED CELL DISTRIBUTION WIDTH 15.1 % (12.4-15.0); WHITE BLOOD CELL COUNT,WBC 4.4 x10-3/uL (3.2-10.1)
[2025-05-31] MEDS: Prochlorperazine 10 MG/2 ML SDV IVPUSH ONE (17:14)
[2025-05-31 17:15] LABS: BLOOD UREA NITROGEN,BUN 17 mg/dL (7-18); CARBON DIOXIDE,CO2 28 mmol/L (21-32); CHLORIDE,CL 93 mmol/L (100-110); CREATININE 0.9 mg/dL (0.70-1.30); ESTIMATED GFR 107 mL/min (>60); GLUCOSE RANDOM 109 mg/dL (80-116); POTASSIUM,K 3.7 mmol/L (3.5-5.3); SODIUM,NA 133 mmol/L (135-145)
[2025-05-31 17:17] LABS: ETHANOL BLOOD MEDICAL < 0.03 % (<0.03)
[2025-05-31] MEDS: LORazepam 2 MG/ML SDV IVPUSH ONE (17:17)
[2025-05-31 17:26] LABS: A/G RATIO 1.1; ASPARTATE AMNIOTRANSFERASE,AST 118 IU/L (5-25); BILIRUBIN TOTAL 1.5 mg/dL (0.1-1.3); PHOSPHORUS 3.0 mg/dL (2.6-4.6); PROTEIN TOTAL,TP 7.4 g/dL (6.0-8.0)
[2025-05-31 17:29] LABS: ALANINE AMINOTRANSFERASE,ALT 295 U/L (12-36)
[2025-05-31] MEDS: Magnesium Sulfate 2 GM/50 mL 2 GM in Premix Bag 1 BAG IV ONE (18:30)
[2025-05-31 19:35] LABS: METHAMPHETAMINE SCREEN, URINE NEGATIVE (NEGATIVE)
[2025-05-31 19:36] LABS: AMPHETAMINES SCREEN, URINE NEGATIVE (NEGATIVE); BUPRENORPHINE SCREEN,URINE NEGATIVE (NEGATIVE); METHADONE SCREEN, URINE NEGATIVE (NEGATIVE); OXYCODONE SCREEN,URINE NEGATIVE (NEGATIVE)
== END 2025-05-31 20:16 | disposition home or self-care (01) ==
LOC: FB.ED 16:31
DX: F10.939 Alcohol use, unspecified with withdrawal, unspecified (principal); K70.9 Alcoholic liver disease, unspecified; E83.42 Hypomagnesemia; E86.0 Dehydration; I10 Essential (primary) hypertension; Z90.49 Acquired absence of other specified parts of digestive tract; F17.200 Nicotine dependence, unspecified, uncomplicated; Z91.013 Allergy to seafood; Z79.899 Other long term (current) drug therapy; Y90.0 Blood alcohol level of less than 20 mg/100 ml
CPT/HCPCS: 36415; 80053; 80307; 83690; 83735; 84100; 85025; 96361; 96365; 96372; 96375; 99284; 99284-25; J0780; J2060; J2359; J3475; J7030

== ENCOUNTER 2025-08-03 15:05 | Emergency (ER) | payer BC | END 2025-08-03 15:30 | disposition left against medical advice (07) | LOC: FB.ED 15:05 | DX: Z53.21 Procedure and treatment not carried out due to patient leaving prior to being seen by health care provider (principal) ==

== ENCOUNTER 2025-08-11 04:09 | Emergency (ER) | payer BC | END 2025-08-11 04:30 | disposition home or self-care (01) | LOC: FB.ED 04:09 | DX: F10.939 Alcohol use, unspecified with withdrawal, unspecified (principal); I10 Essential (primary) hypertension; F17.200 Nicotine dependence, unspecified, uncomplicated; Z91.013 Allergy to seafood; Z79.899 Other long term (current) drug therapy; Z90.49 Acquired absence of other specified parts of digestive tract | CPT/HCPCS: 82947; 99284 ==

== ENCOUNTER 2025-08-14 11:13 | Emergency (ER) | payer BC ==
[2025-08-14] MEDS: Prochlorperazine 10 MG/2 ML SDV IVPUSH ONE (11:49)
[2025-08-14 11:56] LABS: BASOPHILS ABSOLUTE AUTO 0.0 x10-3/uL (0.0-0.3); BASOPHILS PERCENT AUTO 0.4 % (0.3-3.8); BLOOD UREA NITROGEN,BUN 14 mg/dL (7-18); CARBON DIOXIDE,CO2 14 mmol/L (21-32); CHLORIDE,CL 94 mmol/L (100-110); CREATININE 0.9 mg/dL (0.70-1.30); EOSINOPHILS ABSOLUTE AUTO 0.0 x10-3/uL (0.0-0.6); EOSINOPHILS PERCENT AUTO 0.0 % (0.1-6.8); EST CRCL DRUG DOSING (CG) 85.88 mL/min; ESTIMATED GFR 107 mL/min (>60); GLUCOSE RANDOM 128 mg/dL (80-116); LYMPHOCYTES ABSOLUTE AUTO 2.0 x10-3/uL (0.5-4.5); LYMPHOCYTES PERCENT AUTO 21.9 % (15.8-45.3); MEAN PLATELET VOLUME 6.6 fL (6.7-11.0); MONOCYTES ABSOLUTE AUTO 0.6 x10-3/uL (0.0-1.2); MONOCYTES PERCENT AUTO 6.0 % (5.5-15.2); NEUTROPHILS ABSOLUTE AUTO 6.7 x10-3/uL (1.7-6.9); NEUTROPHILS PERCENT AUTO 71.7 % (40.3-71.8); PLATELET COUNT,PLT 269 x10(3)uL (117-477); POTASSIUM,K 3.9 mmol/L (3.5-5.3); RED BLOOD CELL COUNT 6.24 x10(6)uL (3.90-5.90); RED CELL DISTRIBUTION WIDTH 13.3 % (12.4-15.0); SODIUM,NA 135 mmol/L (135-145); WHITE BLOOD CELL COUNT,WBC 9.3 x10-3/uL (3.2-10.1)
[2025-08-14 12:07] LABS: A/G RATIO 0.9; BILIRUBIN TOTAL 2.1 mg/dL (0.1-1.3); PROTEIN TOTAL,TP 7.9 g/dL (6.0-8.0)
[2025-08-14 12:08] LABS: ETHANOL BLOOD MEDICAL 0.19 % (<0.03)
[2025-08-14 12:09] LABS: ALANINE AMINOTRANSFERASE,ALT 172 U/L (12-36); ASPARTATE AMNIOTRANSFERASE,AST 169 IU/L (5-25)
== END 2025-08-14 12:47 | disposition home or self-care (01) ==
LOC: FB.ED 11:13
DX: R11.2 Nausea with vomiting, unspecified (principal); F10.120 Alcohol abuse with intoxication, uncomplicated; R74.8 Abnormal levels of other serum enzymes; I10 Essential (primary) hypertension; E66.9 Obesity, unspecified; F17.200 Nicotine dependence, unspecified, uncomplicated; Z88.8 Allergy status to other drugs, medicaments and biological substances; Z91.013 Allergy to seafood; Z86.16 Personal history of COVID-19; Z90.49 Acquired absence of other specified parts of digestive tract; Z79.899 Other long term (current) drug therapy; Z68.37 Body mass index [BMI] 37.0-37.9, adult; Y90.9 Presence of alcohol in blood, level not specified
CPT/HCPCS: 80053; 80307; 83690; 85025; 96361; 96374; 99284; J0780; J7030

== ENCOUNTER 2025-08-15 21:09 | Emergency (ER) | payer BC ==
[2025-08-15 21:35] LABS: BASOPHILS ABSOLUTE AUTO 0.0 x10-3/uL (0.0-0.3); BASOPHILS PERCENT AUTO 0.5 % (0.3-3.8); EOSINOPHILS ABSOLUTE AUTO 0.0 x10-3/uL (0.0-0.6); EOSINOPHILS PERCENT AUTO 0.1 % (0.1-6.8); LYMPHOCYTES ABSOLUTE AUTO 2.1 x10-3/uL (0.5-4.5); LYMPHOCYTES PERCENT AUTO 29.9 % (15.8-45.3); MEAN PLATELET VOLUME 6.4 fL (6.7-11.0); MONOCYTES ABSOLUTE AUTO 0.4 x10-3/uL (0.0-1.2); MONOCYTES PERCENT AUTO 5.5 % (5.5-15.2); NEUTROPHILS ABSOLUTE AUTO 4.5 x10-3/uL (1.7-6.9); NEUTROPHILS PERCENT AUTO 64.0 % (40.3-71.8); PLATELET COUNT,PLT 205 x10(3)uL (117-477); RED BLOOD CELL COUNT 5.77 x10(6)uL (3.90-5.90); RED CELL DISTRIBUTION WIDTH 13.6 % (12.4-15.0); WHITE BLOOD CELL COUNT,WBC 7.1 x10-3/uL (3.2-10.1)
[2025-08-15 21:38] LABS: BLOOD UREA NITROGEN,BUN 9 mg/dL (7-18); CARBON DIOXIDE,CO2 20 mmol/L (21-32); CHLORIDE,CL 97 mmol/L (100-110); CREATININE 0.7 mg/dL (0.70-1.30); EST CRCL DRUG DOSING (CG) 110.41 mL/min; ESTIMATED GFR 115 mL/min (>60); GLUCOSE RANDOM 108 mg/dL (80-116); POTASSIUM,K 3.7 mmol/L (3.5-5.3); SODIUM,NA 137 mmol/L (135-145)
[2025-08-15 21:48] LABS: A/G RATIO 0.9; BILIRUBIN TOTAL 1.5 mg/dL (0.1-1.3); PROTEIN TOTAL,TP 7.5 g/dL (6.0-8.0)
[2025-08-15 21:50] LABS: ALANINE AMINOTRANSFERASE,ALT 161 U/L (12-36); ASPARTATE AMNIOTRANSFERASE,AST 160 IU/L (5-25)
[2025-08-15] MEDS: Ketorolac 30 MG/ML SDV IM ONE (21:58)
[2025-08-15 22:05] LABS: D-DIMER QUANTITATIVE 1.21 mg/LFEU (0.0-0.59); INR 0.92 (1.00-1.24); PTT,PARTIAL THROMBOPLSTIN TIME 24.6 SECONDS (24.4-33.2)
[2025-08-15] MEDS: diphenhydrAMINE 50 MG/ML SDV IVPUSH ONE (22:26)
[2025-08-15] MEDS: Iopamidol 755 Mg/ML 100 ML Bottle IV ONE (22:53)
== END 2025-08-15 23:25 | disposition home or self-care (01) ==
LOC: FB.ED 21:09 → SUPCPDRO 21:09 → FB.ED 23:25
DX: R06.02 Shortness of breath (principal); M79.605 Pain in left leg; I10 Essential (primary) hypertension; K21.9 Gastro-esophageal reflux disease without esophagitis; Z91.013 Allergy to seafood; Z88.8 Allergy status to other drugs, medicaments and biological substances; Z79.899 Other long term (current) drug therapy; Z86.16 Personal history of COVID-19; Z90.49 Acquired absence of other specified parts of digestive tract
CPT/HCPCS: 36415; 71275; 80053; 80307; 84484; 85025; 85379; 85610; 85730; 93005; 96372; 96374; 99285; J1200; J1885; Q9967

== ENCOUNTER 2025-08-16 10:26 | Emergency (ER) | payer BC ==
[2025-08-16 11:14] LABS: BASOPHILS ABSOLUTE AUTO 0.0 x10-3/uL (0.0-0.3); BASOPHILS PERCENT AUTO 0.7 % (0.3-3.8); EOSINOPHILS ABSOLUTE AUTO 0.0 x10-3/uL (0.0-0.6); EOSINOPHILS PERCENT AUTO 0.3 % (0.1-6.8); LYMPHOCYTES ABSOLUTE AUTO 0.9 x10-3/uL (0.5-4.5); LYMPHOCYTES PERCENT AUTO 20.8 % (15.8-45.3); MEAN PLATELET VOLUME 6.7 fL (6.7-11.0); MONOCYTES ABSOLUTE AUTO 0.4 x10-3/uL (0.0-1.2); MONOCYTES PERCENT AUTO 9.0 % (5.5-15.2); NEUTROPHILS ABSOLUTE AUTO 3.1 x10-3/uL (1.7-6.9); NEUTROPHILS PERCENT AUTO 69.2 % (40.3-71.8); PLATELET COUNT,PLT 145 x10(3)uL (117-477); RED BLOOD CELL COUNT 5.60 x10(6)uL (3.90-5.90); RED CELL DISTRIBUTION WIDTH 13.5 % (12.4-15.0); WHITE BLOOD CELL COUNT,WBC 4.4 x10-3/uL (3.2-10.1)
[2025-08-16 11:17] LABS: BLOOD UREA NITROGEN,BUN 12 mg/dL (7-18); CARBON DIOXIDE,CO2 23 mmol/L (21-32); CHLORIDE,CL 94 mmol/L (100-110); CREATININE 0.7 mg/dL (0.70-1.30); ESTIMATED GFR 115 mL/min (>60); GLUCOSE RANDOM 118 mg/dL (80-116); POTASSIUM,K 4.2 mmol/L (3.5-5.3); SODIUM,NA 132 mmol/L (135-145)
[2025-08-16 11:23] LABS: A/G RATIO 0.9; ALANINE AMINOTRANSFERASE,ALT 124 U/L (12-36); ASPARTATE AMNIOTRANSFERASE,AST 96 IU/L (5-25); BILIRUBIN TOTAL 2.6 mg/dL (0.1-1.3); PROTEIN TOTAL,TP 7.3 g/dL (6.0-8.0)
[2025-08-16 11:27] LABS: ETHANOL BLOOD MEDICAL < 0.03 % (<0.03)
== END 2025-08-16 12:42 ==
LOC: FB.ED 10:26
DX: F10.90 Alcohol use, unspecified, uncomplicated (principal); I10 Essential (primary) hypertension; E66.9 Obesity, unspecified; Z86.16 Personal history of COVID-19; Z91.013 Allergy to seafood; Z88.8 Allergy status to other drugs, medicaments and biological substances
CPT/HCPCS: 80053; 80307; 83690; 85025; 96361; 96374; 99285-25; J3360; J7030